=== PATIENT | female | born 1975 | race Caucasian/White ===

== ENCOUNTER 2023-04-07 19:15 | Emergency (ER) | payer SELFPAY ==
--- NOTE | ~2023-04-07 | XR_ITS ---
EXAMINATION: XR chest 2V DATE: 04/07/2023 19:37 INDICATION: Chronic cough and congestion TECHNIQUE: PA and lateral views of the chest were obtained. COMPARISON: None FINDINGS: The lungs are clear with no focal airspace opacities, pulmonary edema, pleural effusion or pneumothor ax. The cardiomediastinal silhouette is normal. Mild thoracic spondylosis. IMPRESSION: 1. No acute cardiopulmonary disease. Reviewed, dictated and finalized at location A. [facility]
[2023-04-07 19:43] VITALS: BP 132/71; PULSE 115; RESP 18; TEMP 37.2; O2SAT 96
[2023-04-07 20:14] VITALS: BP 132/71; PULSE 115; RESP 18; TEMP 37.2; O2SAT 96
--- NOTE | 2023-04-07 20:24 | ED.GENADULT ---
HPI - General Adult General Chief complaint: Upper Respiratory Infection Stated complaint: Cough/Fever/Shortness of Breath Source: patient Mode of arrival: ambulatory Limitations: no limitations History of Present Illness HPI narrative: Patient presents for evaluation of cough since . Her symptoms worsened on Thursday of this week. She now has fever, chills, wheezing, dyspnea on exertion and generalized body aches. No nausea, vomiting, diarrhea. Her son is being evaluated here for similar symptoms. She does not smoke. She is not taking any medications to assist with her symptoms. She is on prednisone 10mg daily at home for management of RA. Related Data Home Medications Medication Instructions Recorded Confirmed B Complex-Vitamin B12 04/07/23 04/07/23 diclofenac sodium 75 mg 75 mg PO BID 04/07/23 04/07/23 tablet,delayed release doxycycline hyclate 100 mg tablet 100 mg PO DAILY 04/07/23 04/07/23 escitalopram oxalate 10 mg tablet 10 mg PO HS 04/07/23 04/07/23 folic acid 1 mg tablet 1 mg PO DAILY 04/07/23 04/07/23 magnesium oxide 250 mg PO BID 04/07/23 04/07/23 methotrexate sodium 2.5 mg tablet mg 04/07/23 multivitamin 1 tablet PO DAILY 04/07/23 04/07/23 pantoprazole 40 mg tablet,delayed 40 mg PO DAILY 04/07/23 04/07/23 release prednisone 5 mg tablet 5 mg PO 04/07/23 rosuvastatin 20 mg tablet 20 mg PO DAILY 04/07/23 04/07/23 Allergies Allergy/AdvReac Type Severity Reaction Status Date / Time amoxicillin Allergy Rash Verified 04/07/23 19:58 azithromycin Allergy Rash Verified 04/07/23 19:58 diphenhydramine Allergy Dizziness Verified 04/07/23 19:58 lansoprazole Allergy Rash Verified 04/07/23 19:58 levomilnacipran Allergy Rash Verified 04/07/23 19:58 oxycodone Allergy Rash Verified 04/07/23 19:46 sulfamethoxazole Allergy Swelling Verified 04/07/23 19:59 [From Sulfamethoxazole-Trimethoprim] trimethoprim Allergy Swelling Verified 04/07/23 19:59 [From Sulfamethoxazole-Trimethoprim] vitamin A Allergy Unknown Verified 04/07/23 20:04 BENADRYL ALLERGY DECONGESTANT Allergy Unknown Uncoded 04/07/23 20:04 OXAPROZIN Allergy Unknown Uncoded 04/07/23 19:46 OXYCODONE-ASPIRIN Allergy Rash Uncoded 04/07/23 20:04 ULTRA ANTIOXIDANT FORMULA Allergy Unknown Uncoded 04/07/23 20:04 VITAMIN C E-SELENIUM Allergy Unknown Uncoded 04/07/23 20:04 Review of Systems Review of Systems: CONSTITUTIONAL: Reports fever and chills. EYES: Denies visual changes, redness, or discharge. ENT: Denies rhinorrhea, congestion, sore throat, or otalgia. CARDIOVASCULAR: Denies chest pain, palpitations, or edema. RESPIRATORY: Reports cough, wheezing and dyspnea on exertion GASTROINTESTINAL: Denies abdominal pain, nausea, vomiting, or diarrhea. GENITOURINARY: Denies dysuria or hematuria. SKIN: Denies rash or itching. MUSCULOSKELETAL: Reports generalized body aches NEUROLOGIC: Denies headache, numbness, dizziness, or weakness. PSYCHIATRIC: Denies anxiety or depression. [facility] Past Medical History Medical History GERD (gastroesophageal reflux disease) Hyperlipidemia Rheumatoid arthritis Surgical History Surgical History History of hysterectomy History of oophorectomy Family History Family History Mother Family history non-contributory Social History Social History (Updated 04/07/23 @ 20:27 by DELMAR Horan, ) Smoking status: Never smoker Substance use: never Living arrangements: with family Gender identity (if verbalized by the patient): Female Spiritual care concerns: No Exam Narrative: GENERAL: Well-appearing, well-nourished, and in no acute distress. HEAD: Normocephalic, atraumatic. EYES: PERRLA and EOMI. ENT: Nares clear, no rhinorrhea or epistaxis. Mucous membranes moist. Oropharynx with
== END 2023-04-07 20:26 | disposition home or self-care (01) ==
PROVIDERS: Emergency Provider Nurse Practitioner
DX: J10.1 Influenza due to other identified influenza virus with other respiratory manifestations (principal); K21.9 Gastro-esophageal reflux disease without esophagitis; E78.5 Hyperlipidemia, unspecified; M06.9 Rheumatoid arthritis, unspecified; Z20.822 Contact with and (suspected) exposure to COVID-19
CPT/HCPCS: 71046; 87081; 87426; 87804; 87880; 99213; G0463